=== PATIENT | male | born 1950 | race Caucasian/White ===

== ENCOUNTER 2022-07-01 14:53 | Emergency (ER) | payer OTHER ==
[~2022-07-01] VITALS: Ht 167.6 cm; Wt 74.8 kg
[~2022-07-01 14:53] MED LIST: ATENOLOL25 MG
[2022-07-01] MEDS ORDERED: COZAAR50 MG (15:04)
[2022-07-01] MEDS ORDERED: SIMVASTATIN20 MG (15:04)
[2022-07-01] MEDS ORDERED: TAMS0.4C (15:05)
== END 2022-07-01 23:21 | disposition home or self-care (01) ==
LOC: ER 14:53
DX: K64.8 Other hemorrhoids (principal); N40.1 Benign prostatic hyperplasia with lower urinary tract symptoms; N13.8 Other obstructive and reflux uropathy; K57.90 Diverticulosis of intestine, part unspecified, without perforation or abscess without bleeding; K44.9 Diaphragmatic hernia without obstruction or gangrene

== ENCOUNTER 2023-06-15 22:08 | Inpatient (IN) | payer OTHER ==
[~2023-06-15] VITALS: Ht 167.6 cm; Wt 70.8 kg
[~2023-06-15 22:08] MED LIST changes: +COZAAR50 MG; +SIMVASTATIN20 MG; +TAMS0.4C; +TENORMIN25 MG
[2023-06-16] MEDS ORDERED: OMEPRAZOLE20 MG (16:05)
[2023-06-22] MEDS ORDERED: TAMS0.4C PO (10:38)
[2023-06-22] MEDS ORDERED: ATENOLOL25 MG PO (10:38)
[2023-06-22] MEDS ORDERED: OXYBUTYNIN CHLOR5 MG PO (10:38)
[2023-06-22] MEDS ORDERED: ALLOPURINOL300 MG PO (10:38)
== END 2023-06-22 13:48 | disposition designated cancer center or children's hospital (05) | DRG 690 ==
LOC: ER 22:08 → SEC-K 06-16 15:25 → SURH 06-16 15:25 → MEDJ 06-16 15:48 → SURH 06-16 16:48
PROVIDERS: ADMIT Internal Medicine; ATTEND Internal Medicine
PROC: B24BZZZ Ultrasonography of Heart with Aorta (ICD-10-PCS; principal; 2023-06-16)
PROC: 30233N1 Transfusion of Nonautologous Red Blood Cells into Peripheral Vein, Percutaneous Approach (ICD-10-PCS; 2023-06-16)
DX: N39.0 Urinary tract infection, site not specified (principal); N17.9 Acute kidney failure, unspecified; C95.00 Acute leukemia of unspecified cell type not having achieved remission; D64.9 Anemia, unspecified; N13.8 Other obstructive and reflux uropathy; R31.0 Gross hematuria; N32.0 Bladder-neck obstruction; K29.60 Other gastritis without bleeding; D69.6 Thrombocytopenia, unspecified; I12.9 Hypertensive chronic kidney disease with stage 1 through stage 4 chronic kidney disease, or unspecified chronic kidney disease; N18.9 Chronic kidney disease, unspecified; N40.1 Benign prostatic hyperplasia with lower urinary tract symptoms; Z20.822 Contact with and (suspected) exposure to COVID-19; K21.9 Gastro-esophageal reflux disease without esophagitis; K44.9 Diaphragmatic hernia without obstruction or gangrene